=== PATIENT | female | born 1995 | race African-American/Black ===

== ENCOUNTER 2018-11-16 14:41 | Emergency (ER) | payer OTHER, MEDICAID ==
--- NOTE | 2018-11-16 15:40 | EDPHY ---
General - History Smoking Status: Never smoked Time Seen by Provider: 11/16/18 15:10 Narrative: CLINICAL IMPRESSION: Dysuria ASSESSMENT/PLAN: 23-year-old female presents to the emergency department with her mother for concerns of inability to urinate over the last 24 hr. Patient does report some dysuria associated with the last urine output yesterday. She has been drinking fluid. Her mother reports some history of renal problems but does not know what this was nor does she remember the patient's baseline creatinine. Abdomen is soft with no focal peritoneal findings. Multiple attempts at initial bedside bladder scan revealed 0 mL present. Patient received IV fluids and labs. She does have renal insufficiency of 1.4, no significant electrolyte imbalance, leukocytosis. Vital signs are stable. She otherwise appears nontoxic, nonseptic and comfortable. No new psychiatric or [id number] medications. Case signed out to KATYA Zamarripa at 1700 pending urine. I did discuss initially with the patient that she may need a cath UA if she is unable to urinate for us. DIFFERENTIAL DX: Abdominal pain includes but not limited to urinary tract infection, pyelonephritis, urinary retention, acute renal insufficiency, infection, ectopic , constipation ED PROCEDURES: See lab and/or imaging results below ED COURSE: 4:50 p.m.: Labs returned. No leukocytosis, anemia. Patient does have renal insufficiency with a creatinine of 1.4 unfortunately I have no prior comparisons. Still awaiting urine at this time. Case will be signed out to KATYA Zamarripa at 5:00 p.m. Pending urine or repeat bladder scan. CHIEF COMPLAINT: No urine output in 24 hr HPI: 23-year-old female with past medical history of bipolar, asthma , and psychotic episodes presents to the emergency department with her mother for concerns of no urine output since 3:00 p.m. Yesterday. Patient reports no change in her psychiatric medications and has been taking her medications compliantly. No [id number] medications or cold meds. She complains of dysuria yesterday the last time she urinated. She has had fluids over the last 24 hr. She struggles with intermittent constipation but has no complaints of severe abdominal pain, vomiting, or bloody stools. She does complain of some nausea. No history of chronic UTIs. No fever or chills. No flank pain. Her mother does not recollect if she has been told she has a history of renal insufficiency. They went to urgent care but she was unable to produce urine there and they were sent here. PAST MEDICAL HISTORY: Asthma, bipolar, psychotic episodes See nurse/triage notes for additional history if applicable Pertinent Past Surgical History: None reported Family History: Not available Social History: Adopted, here with her mother REVIEW OF SYSTEMS: All other systems negative Constitutional: No fever, no chills, appetite change. Cardiovascular: No chest pain, no palpitations. Respiratory: No cough, no shortness of breath. Gastrointestinal: No abdominal pain, no vomiting, diarrhea. Genitourinary: No hematuria, positive for dysuria, denies flank pain, positive for lower pelvic pain Musculoskeletal: No back pain, joint swelling, joint pain, myalgias. Skin: No rashes, color change. Neurological: No headache, dizziness, weakness. PHYSICAL EXAM: General Appearance: Alert, oriented, appropriate, cooperative, quiet, flat affect, well hydrated, non-toxic appearing, VSS, no hypoxia. HEENT:Oropharynx clear is no erythema or exudates, no tonsillar hypertrophy or asymmetry. Dentition without abnormality.] Respiratory: There are no retractions, lungs are clear to auscultation. Cardiac: Regular rate and rhythm, no murmurs or gallops. Gastrointestinal: Abdomen is soft, nontender, bowel sounds normal, no masses/ hernia, no rigidity, guarding or focal peritoneal findings. Multiple attempts at bladder scan reveals 0 mL volume. Neurological: [ Alert and oriented x 3, CN 2-12 grossly intact Skin: Warm, dry, no rashes, no nodules on palpation. MEDICAL DECISION MAKING: Patient was seen independently. Secondary supervising physician at time of evaluation was Dr Salter. Diagnosis: . New, requires workup Summary: See Assessment and Plan for summary of ED visit Clinical lab tests: ordered / reviewed. Decision to obtain medical records or history from someone other than the patient: Patient's mother Discussed patient with another provider: KATYA Zamarripa Patient Progress: Stable . (Shar Smith) The patient was evaluated and managed by the physician's account management assistant. My cosignature indicates that I reviewed the chart and I agree with the findings and plan of care as documented. I am the secondary supervising physician. ( Marlene Salter) Medical Decision Makin: I introduced myself to the patient, patient denies any specific complaints at this time. 1829: Patient still unable to urinate, repeat bladder scan with 385 cc. Her abdomen is soft, nontender without evidence of a surgical abdomen. Will continue to try for voluntary urine sample. 1934: Patient unable to provide a urine sample, Jay catheter placed for acute urinary retention. Case discussed with Dr. Salter, plan will be follow- up with Urology. Patient is a 23-year-old female with a significant medical history of asthma, bipolar disorder and psychotic episodes who presents to the emergency department with complaints of dysuria and urinary retention. Patient is afebrile and not toxic-appearing, she is in no acute distress on my examination. Patient's abdomen was soft , mild tenderness in the suprapubic region without rebound or guarding; no evidence of a focal peritoneal findings or surgical abdomen. The patient was given 2 L of normal saline, repeat bladder scan revealed 385 cc of retained urine with persistent inability to urinate. History and physical examination today is consistent with acute urinary retention, unclear etiology at this time. Patient was treated with a Jay catheter and a large amount of urine was returned. CBC revealed no evidence of leukocytosis, BMP revealed mild a KI with a creatinine of 1.4. This was repeated and normalized to 1.1, I suspect this was pre renal and secondary to poor intake. UA with no evidence of UTI, no findings to suggest [place]. There is no evidence of infection, no fever, no vomiting. Patient reported feeling better after Jay placement. On repeat examination her abdominal exam is completely benign, no indication for additional imaging or testing. Plan is to treat with a Jay catheter and followup with urology, they will call Sunday to schedule follow-up. (Cat Zamarripa) - Objective Vital Signs: Initial Vital Signs Temperature (C) 36.6 C 11/16/18 14:46 Heart Rate 78 11/16/18 14:46 Respiratory Rate 18 11/16/18 14:46 Blood Pressure 119/81 H 11/16/18 14:46 O2 Sat (%) 98 11/16/18 14:46 O2 Delivery Mode Room Air Allergies/Adverse Reactions: lithium Allergy (Verified 11/16/18 14:49) Home Medications: Medication Instructions Recorded Albuterol Sulfate 11/16/18 Benztropine Mesylate 11/16/18 Breo Ellipta 100-25 Mcg INH 11/16/18 Fanapt 11/16/18 Lamotrigine 11/16/18 Lovaza 1 gm (*) 11/16/18 Lunesta 11/16/18 Prazosin HCl 11/16/18 Propofol 11/16/18 Ropinirole HCl 11/16/18 Seroquel 11/16/18 Singulair 11/16/18 TOPIRAMATE 11/16/18 Wellbutrin Xl 11/16/18 Laboratory Results: Laboratory Results 11/16/18 16:13 11/16/18 18:39 11/16/18 11/16/18 11/16/18 19:48 19:48 18:39 WBC RBC Hgb Hct MCV MCH MCHC RDW Plt Count MPV Neut % (Auto) Lymph % (Auto) Taney % (Auto) Eos % (Auto) Baso % (Auto) Nucleat RBC Rel Count Absolute Neuts (auto) Absolute Lymphs (auto) Absolute Monos (auto) Absolute Eos (auto) Absolute Basos (auto) Absolute Nucleated RBC Immature Gran % Immature Gran # Sodium Potassium Chloride Carbon Dioxide Anion Gap BUN Creatinine 1.1 mg/dL H mg/dL (0.6-1.0) Estimated GFR > 60 Glucose Calcium Urine Color YELLOW Urine Appearance CLEAR Urine pH 5.0 (5.0-7.5) Ur Specific [place] 1.014 (1.002-1.030) Urine Protein NEGATIVE (NEGATIVE) Urine Ketones TRACE H (NEGATIVE) Urine Blood NEGATIVE (NEGATIVE) Urine Nitrate NEGATIVE (NEGATIVE) Urine Bilirubin NEGATIVE (NEGATIVE) Urine Urobilinogen NEGATIVE EU EU (0.2-1.0) Ur Leukocyte Esterase NEGATIVE (NEGATIVE) Urine RBC 1-3 /hpf /hpf (0-3) Urine WBC 1-3 /hpf /hpf (0-3) Ur Epithelial Cells TRACE /lpf /lpf (NONE-1+) Urine Mucus TRACE /lpf /lpf (NONE-1+) Urine Glucose NEGATIVE (NEGATIVE) Urine Test NEGATIVE 11/16/18 11/16/18 11/16/18 16:13 16:13 16:13 WBC 4.04 10^3/uL 10^3/uL (3.80-9.50) RBC 5.01 10^6/uL 10^6/uL (4.18-5.33) Hgb 14.6 g/dL g/dL (12.6-16.3) Hct 44.4 % % (38.0-47.0) MCV 88.6 fL fL (81.5-99.8) MCH 29.1 pg pg (27.9-34.1) MCHC 32.9 g/dL g/dL (32.4-36.7) RDW 13.4 % % (11.5-15.2) Plt Count 245 10^3/uL 10^3/uL (150-400) MPV 9.2 fL fL (8.7-11.7) Neut % (Auto) 40.6 % % (39.3-74.2) Lymph % (Auto) 43.6 % % (15.0-45.0) Taney % (Auto) 11.9 % % (4.5-13.0) Eos % (Auto) 2.7 % % (0.6-7.6) Baso % (Auto) 1.2 % % (0.3-1.7) Nucleat RBC Rel Count 0.0 % % (0.0-0.2) Absolute Neuts (auto) 1.64 10^3/uL L 10^3/uL (1.70-6.50) Absolute Lymphs (auto) 1.76 10^3/uL 10^3/uL (1.00-3.00) Absolute Monos (auto) 0.48 10^3/uL 10^3/uL (0.30-0.80) Absolute Eos (auto) 0.11 10^3/uL 10^3/uL (0.03-0.40) Absolute Basos (auto) 0.05 10^3/uL 10^3/uL (0.02-0.10) Absolute Nucleated RBC 0.00 10^3/uL 10^3/uL (0-0.01) Immature Gran % 0.0 % % (0.0-1.1) Immature Gran # 0.00 10^3/uL 10^3/uL (0.00-0.10) Sodium 141 mEq/L mEq/L (135-145) Potassium 4.1 mEq/L mEq/L (3.5-5.2) Chloride 111 mEq/L H mEq/L (97-110) Carbon Dioxide 21 mEq/l L mEq/l (22-31) Anion Gap 9 mEq/L mEq/L (6-14) BUN 19 mg/dL mg/dL (7-23) Creatinine REJ 1.4 mg/dL H mg/dL (0.6-1.0) Estimated GFR REJ 46 Glucose 87 mg/dL mg/dL (70-100) Calcium 10.4 mg/dL mg/dL (8.5-10.4) Urine Color Urine Appearance Urine pH Ur Specific [place] Urine Protein Urine Ketones Urine Blood Urine Nitrate Urine Bilirubin Urine Urobilinogen Ur Leukocyte Esterase Urine RBC Urine WBC Ur Epithelial Cells Urine Mucus Urine Glucose Urine Test Medications Given: Discontinued Medications Sodium Chloride (Ns) 1,000 mls @ 0 mls/hr IV EDNOW ONE; Wide Open PRN Reason: Protocol Stop: 11/16/18 15:52 Last Admin: 11/16/18 16:17 Dose: 1,000 mls Sodium Chloride (Ns) 1,000 mls @ 0 mls/hr IV ONCE ONE PRN Reason: Wide Open Stop: 11/16/18 17:19 Last Admin: 11/16/18 17:31 Dose: 1,000 mls Departure - Departure Disposition: Home, Routine, Self-Care Clinical Impression: Dysuria, Acute urinary retention, Jay catheter in place Condition: Good Instructions: Acute Urinary Retention in Women (ED) Additional Instructions: DISCHARGE INSTRUCTIONS FROM YOUR DOCTOR Thank you for visiting our emergency department today. Please keep in mind that discharge from the emergency department does not mean that there is nothing wrong - it simply means that we have not identified an emergency condition that requires further evaluation or treatment in the hospital. You should always plan to follow up with primary care for re-evaluation of your condition in the next 2-3 days. You will need to leave your Jay catheter in place until you are seen by Urology. Please call Sunday morning to schedule an appointment for repeat examination. Please return to the emergency department for development of fever, nausea, vomiting, development of abdominal pain or for any other concerning symptom. People present with illnesses and injuries in different ways, and it is always possible that we have missed something. You may always return for re-evaluation if symptoms worsen or if they are not improving or if you develop new/different symptoms. Again, thank you for choosing our emergency department. We hope that you feel better. Referrals: Marcellus Zepeda MD [Medical Doctor] - 1-2 days without fail (Please call 1st thing Sunday to schedule appointment for repeat examination.)
[2018-11-16] MEDS ORDERED: NS 1,000 ML IV ONE ×2 (15:51→17:18)
[2018-11-16 16:22] LABS: PLATELET COUNT 245 10^3/uL (150-400)
[2018-11-16 21:03] VITALS: BP 126/79
== END 2018-11-16 21:06 | disposition home or self-care (01) ==
DX: R33.9 Retention of urine, unspecified (principal); E86.9 Volume depletion, unspecified; F31.9 Bipolar disorder, unspecified; Z79.899 Other long term (current) drug therapy